=== PATIENT | female | born 1995 | race African-American/Black ===

== ENCOUNTER 2017-06-09 12:20 | Emergency (ER) | payer MEDICAID, OTHER, SELFPAY ==
[2017-06-09] MEDS ORDERED: Dexamethasone 4 mg/ml Vial ONE (12:45)
== END 2017-06-09 12:53 | disposition home or self-care (01) ==
LOC: BURERS 12:20
DX: R51 Headache (principal)
CPT/HCPCS: 99283; J1100

== ENCOUNTER 2019-01-18 13:15 | Emergency (ER) | payer OTHER, SELFPAY ==
[2019-01-18 14:39] LABS: Bilirubin Negative (Negative); Blood, Urine Large (Negative); Clarity Clear (Clear); Glucose, Urine (Dipstick) Negative (Negative); Leukocyte Trace (Negative); Nitrite Negative (Negative); Protein, Urine (Dipstick) Negative (Neg-Trace)
[2019-01-18 14:40] LABS: Pregu Control Background? CLEAR/WHITE (CLR/WHITE); Pregu Control Bar Appear? YES (CONTROL BAR)
[2019-01-18 14:41] LABS: Pregnancy Test - Urine (BHCG) Negative (Negative)
[2019-01-18 14:44] LABS: Bacteria/HPF 1+ HPF (None Seen); Broad Cast None Seen LPF (None Seen); Calcium Oxalate Crystals None Seen HPF (None Seen); Cellular Cast None Seen LPF (None Seen); Epithelial Cast None Seen LPF (None Seen); Fatty Cast None Seen LPF (None Seen); Mucous/LPF None Seen LPF (<2+); Other Casts None Seen LPF (None Seen); Oval Fat Bodies/HPF None Seen HPF (None Seen); RBC/HPF 0-3 HPF (0-3); Red Blood Cell Cast None Seen LPF (None Seen); Renal Epithelial None Seen HPF (None Seen); Sperm/HPF None Seen HPF (None Seen); Squamous Epithelial None Seen HPF (0-3); Transitional Epithelial None Seen HPF (None Seen); Trichomonas/HPF None Seen HPF (None Seen); Triple Phosphate Crystal None Seen HPF (None Seen); Unclassified Crystals None Seen HPF (None Seen); WBC/HPF 0-3 HPF (0-3); Waxy Cast None Seen LPF (None Seen); White Blood Cell Cast None Seen LPF (None Seen); Yeast-Budding None Seen HPF (None Seen); Yeast-Hyphae None Seen HPF (None Seen)
== END 2019-01-18 14:55 | disposition home or self-care (01) ==
LOC: BURERS 13:15
DX: N94.6 Dysmenorrhea, unspecified (principal)
CPT/HCPCS: 81003; 81015; 81025; 99284

== ENCOUNTER 2019-01-25 11:18 | Emergency (ER) | payer OTHER | END 2019-01-25 11:45 | disposition home or self-care (01) | LOC: BURERS 11:18 | DX: J06.9 Acute upper respiratory infection, unspecified (principal); L73.1 Pseudofolliculitis barbae | CPT/HCPCS: 99283 ==